=== PATIENT | male | born 1975 | race Caucasian/White ===

== ENCOUNTER 2018-10-17 21:17 | Emergency (ER) | payer SELFPAY ==
[~2018-10-17] VITALS: Ht 165.1 cm; Wt 86.2 kg
[2018-10-17 21:22] VITALS: BP_SYST 140
[2018-10-17 21:50] VITALS: BP_SYST 132
== END 2018-10-17 21:50 ==
LOC: SED 21:17
DX: Z02.83 Encounter for blood-alcohol and blood-drug test (principal); R03.0 Elevated blood-pressure reading, without diagnosis of hypertension
CPT/HCPCS: 99283